=== PATIENT | female | born 1965 | race American Indian/Alaskan Native ===

== ENCOUNTER 2018-08-26 10:33 | Outpatient (CLI) | payer MEDICARE, OTHER | END 2018-08-26 10:34 | disposition home or self-care (01) | LOC: C.PAT 10:33 | DX: Z12.11 Encounter for screening for malignant neoplasm of colon (principal) ==

== ENCOUNTER 2018-08-27 08:24 | Day surgery (SDC) | payer MEDICARE, OTHER ==
[2018-08-26 10:27] VITALS: BMI 45.1
[2018-08-27 09:05] VITALS: O2SAT 100
[2018-08-27] MEDS ORDERED: Lidocaine Hydrochloride 5 ML INJ ONE (10:31)
[2018-08-27] MEDS ORDERED: Propofol 10 mg/ml Inj (20 ML) ONE (10:31)
[2018-08-27] MEDS ORDERED: Lactated Ringer's 500 ML IV ONE (10:31)
[2018-08-27 11:20] VITALS: RESP 16
[2018-08-27 11:47] VITALS: TEMP 97.5
[2018-08-27 11:51] VITALS: BP 150/80; PULSE 58
== END 2018-08-27 12:15 | disposition home or self-care (01) ==
LOC: C.ENDO 08:24
PROVIDERS: ATTEND Internal Medicine Gastroenterology
DX: Z12.11 Encounter for screening for malignant neoplasm of colon (principal); K57.30 Diverticulosis of large intestine without perforation or abscess without bleeding; K64.0 First degree hemorrhoids; K59.00 Constipation, unspecified; E11.9 Type 2 diabetes mellitus without complications; D50.9 Iron deficiency anemia, unspecified; F25.9 Schizoaffective disorder, unspecified; F32.9 Major depressive disorder, single episode, unspecified; E66.01 Morbid (severe) obesity due to excess calories; Z68.42 Body mass index [BMI] 45.0-49.9, adult; Z79.84 Long term (current) use of oral hypoglycemic drugs; Z79.899 Other long term (current) drug therapy
CPT/HCPCS: 82948; 84703; G0121; J2704; J7120

== ENCOUNTER 2018-09-23 08:53 | Outpatient (CLI) | payer OTHER | END 2018-09-23 08:54 | disposition home or self-care (01) | LOC: C.MAMMO 08:54 ==